=== PATIENT | female | born 1985 | race Caucasian/White ===

== ENCOUNTER 2018-11-22 19:50 | Emergency (ER) | payer OTHER ==
[~2018-11-22] VITALS: Ht 165.1 cm; Wt 77.3 kg
[2018-11-22 20:03] VITALS: BP 120/78; RESP 20; Ht 165.1 cm; Wt 77.3 kg
[2018-11-22] MEDS ORDERED: ACETAMINOPHEN 325 MG TAB PO ONE (21:00)
--- NOTE | 2018-11-22 22:16 | ERD ---
ER Documentation Chief Complaint Chief Complaint vaginal bleeding/abd pain x 15 minutes. states 15 weeks HPI 33-year-old female is approximately 15 weeks by dates. She has some vaginal spotting and suprapubic cramping which started less than 1 hour ago patient has fevers, vomiting, urinary complaints. Patient is a G1 para 0. [address] Kellogg out of [facility]. ROS All systems reviewed and are negative except as per history of present illness. Allergies Allergies: Coded Allergies: No Known Drug Allergies (Verified Allergy, Unknown, 11/22/18) PMhx/Soc Medical and Surgical Hx: pt denies Surgical Hx Hx Neurological Disorder: No Hx Respiratory Disorders: No Hx Cardiac Disorders: No Hx Psychiatric Problems: No Hx Miscellaneous Medical Probl: Yes (HYPOTHYROID ) Hx Alcohol Use: No Hx Substance Use: No Hx Tobacco Use: No Smoking Status: Never smoker Physical Exam Vitals Vital Signs Date Temp Pulse Resp B/P (MAP) Pulse Ox O2 O2 Flow FiO2 Time Delivery Rate 11/22/18 99.0 104 20 120/78 98 20:03 (92) Physical Exam Const: No acute distress Head: Atraumatic Eyes: Normal Conjunctiva ENT: Normal External Ears, Nose and Mouth. Neck: Full range of motion. No meningismus. Resp: Clear to auscultation bilaterally Cardio: Regular rate and rhythm, no murmurs Abd: Soft, non tender, non distended. Normal bowel sounds Skin: No petechiae or rashes Back: No midline or flank tenderness Ext: No cyanosis, or edema Neur: Awake and alert Psych: Normal Mood and Affect Results 24 hrs Laboratory Tests Test 11/22/18 20:43 Urine Color EVGENY Urine Clarity CLOUDY Urine pH 6.0 Urine Specific [place] 1.028 Urine Ketones 1+ mg/dL Urine Nitrite NEGATIVE mg/dL Urine Bilirubin NEGATIVE mg/dL Urine Urobilinogen 2+ mg/dL Urine Leukocyte Esterase NEGATIVE Claribel/ul Urine Microscopic RBC > 182 /HPF Urine Microscopic WBC 9 /HPF Urine Squamous Epithelial Cells FEW /HPF Urine Mucus MANY /HPF Urine Hemoglobin 3+ mg/dL Urine Glucose NEGATIVE mg/dL Urine Total Protein 2+ mg/dl Current Medications Medications Dose Sig/Amira Start Time Status Last (Trade) Ordered Route PRN Stop Time Admin Dose Reason Admin 650 mg ONCE ONCE 11/22/18 DC 11/22/18 Acetaminophen PO 21:00 11/22/18 20:42 (Tylenol 21:01 Tab) Procedures/MDM Pelvic ultrasound shows normal appearing 15-week intrauterine without identified complications. Positive heart tones. Patient was given Tylenol for pain. Urine shows no signs of infection. Patient was comfortable with a benign abdomen on serial exam. Patient presents with vaginal spotting today. She has no identified complications of 15-week intrauterine . She will discharged home with OB follow-up and continuation of Tylenol as needed for pain. She is to return for fevers, worsening pain, bleeding, new worsening symptoms. Current signs or symptoms do not suggest appendicitis, abscess, gilbert iant torsion, additional complications. The patient was stable with no new complaints during the ER course. Clinically, there is no current evidence to suggest meningitis, sepsis, acute abdomen, pneumonia, stroke, acute coronary syndrome, pulmonary embolism, aortic dissection or any other emergent condition appearing to require further evaluation or hospitalization. Patient counseled regarding my diagnostic impression and care plan. Prior to discharge all questions answered. Pt agrees with treatment plan and understands strict return precautions. Pt is instructed to follow up with primary care provider within 24- 48 hours. Precautionary instructions provided including instructions to return to the ER if not improving or for any worsening or changing symptoms or concerns. Disclaimer: Inadvertent spelling and grammatical errors are likely due to EHR/dictation software use and do not reflect on the overall quality of patient care. Also, please note that the electronic time recorded on this note does not necessarily reflect the actual time of the patient encounter. Departure Diagnosis: Primary Impression: Vaginal bleeding in patient at less than 20 weeks ges... Condition: Stable Patient Instructions: Bleeding During Early Referrals: DOCTOR,NOT ON STAFF (PCP) Additional Instructions: Ultrasound and urine normal today. Recheck with OB this week. Recheck for worsening bleeding, pain, fevers, new or worsening symptoms. Okay to take Tylenol 4 times a day for pain. MARCELINO BARON MD Nov 22, 2018 22:16
[2018-11-22 22:20] VITALS: PULSE 88
== END 2018-11-22 22:19 | disposition home or self-care (01) ==
LOC: FTE 19:50
DX: O20.9 Hemorrhage in early pregnancy, unspecified (principal); O99.282 Endocrine, nutritional and metabolic diseases complicating pregnancy, second trimester; Z3A.15 15 weeks gestation of pregnancy
CPT/HCPCS: 76805; 81001